=== PATIENT | female | born 1975 | race Caucasian/White ===

== ENCOUNTER → 2023-11-20 | Outpatient (CLI) | payer OTHER, SELFPAY ==
[2023-11-20 14:27] LABS: Erythrocyte Sedimentation Rate 17 mm/hr (0-30)
[2023-11-20 14:38] LABS: Vitamin B12 1174 pg/mL (211-911)
[2023-11-20 15:16] LABS: CRP < 2.90 mg/L (0.0-3.0); Ferritin 55 ng/mL (8-252); Iron 98 ug/dL (50-170); Iron Binding Capacity,Total 325 ug/dL (250-450)
[2023-11-25 12:00] LABS: ACCA 11 units (0-90); ALCA 51 units (0-60); AMCA 133 units (0-100); Albumin 4.1 g/dL (2.9-4.4); Alpha-1-Globulins 0.3 g/dL (0.0-0.4); Alpha-2-Globulins 0.8 g/dL (0.4-1.0); Angiotensin Convert Enzyme 18 U/L (14-82); Ceruloplasmin 25.1 mg/dL (19.0-39.0); Copper, Serum or Plasma 98 ug/dL (80-158); Cytoplasmic Ab (C-ANCA) <1:20 titer (Neg:<1:20); Endomysial Antibody IgA Negative (Negative); Gamma Globulin 0.7 g/dL (0.4-1.8); HEPATITIS B SURFACE AG Negative (Negative); Hep C Antibodies Non Reactive (Non Reactive); Hepatitis A IgM Antibody Negative (Negative); Hepatitis B Core AB IgM Negative (Negative); Immunoglobulin A 88 mg/dL (87-352); Immunoglobulin G 624 mg/dL (586-1602); Immunoglobulin M 243 mg/dL (26-217); PROEL- TOTAL PROTEIN 6.9 g/dL (6.0-8.5); Perinuclear Ab (P-ANCA) <1:20 titer (Neg:<1:20); gASCA 17 units (0-50); t-Transglutaminase IgA <2 U/mL (0-3)
[2023-11-27 10:09] LABS: Anti-Centromere B Ab <0.2 AI (0.0-0.9); Anti-Chromatin <0.2 AI (0.0-0.9); Anti-Jo <0.2 AI (0.0-0.9); Anti-Mitochondrial AB <20.0 Units (0.0-20.0); Anti-Scleroderma-70 AB <0.2 AI (0.0-0.9); Anti-dsDNA Ab 1 IU/mL (0-9); Beef <0.10 kU/L (Class 0); Chocolate <0.10 kU/L (Class 0); Codfish <0.10 kU/L (Class 0); Corn <0.10 kU/L (Class 0); Egg, Whole <0.10 kU/L (Class 0); Milk (Cow) <0.10 kU/L (Class 0); Mussels <0.10 kU/L (Class 0); Peanut <0.10 kU/L (Class 0); Pork <0.10 kU/L (Class 0); RNP Ab <0.2 AI (0.0-0.9); SJOGREN'S Anti-SS-A test < 0.2 AI (0.0-0.9); SJOGREN'S Anti-SS-B test < 0.2 AI (0.0-0.9); Salmon <0.10 kU/L (Class 0); Shrimp <0.10 kU/L (Class 0); Smith Ab <0.2 AI (0.0-0.9); Soybean <0.10 kU/L (Class 0); Tuna <0.10 kU/L (Class 0); Wheat <0.10 kU/L (Class 0)
== END | disposition home or self-care (01) ==
LOC: LAB 13:25
PROVIDERS: PCP Family Medicine; Referring Provider Student in an Organized Health Care Education/Training Program; Visit Provider Student in an Organized Health Care Education/Training Program
DX: K90.0 Celiac disease (principal)
CPT/HCPCS: 36415; 80074; 82164; 82390; 82525; 82607; 82728; 82746; 82784; 83516; 83540; 83550; 84165; 85652; 86003; 86005; 86036; 86140; 86225; 86235; 86255; 86256; 86334; 86671